=== PATIENT | male | born 1990 | race African-American/Black ===

== ENCOUNTER 2020-06-27 20:57 | Emergency (ER) | payer OTHER ==
[~2020-06-27] VITALS: Ht 172.7 cm; Wt 65.8 kg
--- NOTE | 2020-06-27 21:01 | NUR ---
Patient presents with c/o Rash to B hands (itchy,dry, flaky) x 1.5 months. States he has had this type of rash before and believes it is related to sensitivity to an unknown object. No cardiopulmonary distress noted. No other s/s of allergic reaction. No airway concerns. No fever/chills/N/V/D.
[2020-06-27] MEDS ORDERED: predniSONE 20 MG TABLET ONE (21:12)
--- NOTE | 2020-06-27 21:13 | NUR ---
Patient discharged to home in stable condition. Written and verbal after care instructions given. Patient verbalizes understanding of instructions. Stressed follow up or return to ER for worsening s/s. Ambulated frm ER with stable gait. All belongings with patient. VSS
[2020-06-27 21:14] VITALS: BP 120/75
[2020-06-27] MEDS ORDERED: predniSONE 20 MG TABLET PO ONE (21:15)
== END 2020-06-27 21:14 | disposition home or self-care (01) ==
LOC: ER 21:00
DX: R21 Rash and other nonspecific skin eruption (principal); F17.200 Nicotine dependence, unspecified, uncomplicated
CPT/HCPCS: 99283; J7512; A4663

== ENCOUNTER 2020-11-08 10:55 | Emergency (ER) | payer OTHER ==
[~2020-11-08] VITALS: Ht 177.8 cm; Wt 68.0 kg
--- NOTE | 2020-11-08 11:03 | NUR ---
Pt has cracking/peeling skin on right lower leg and bilateral wrists, also edema and redness in right lower leg and foot, denies pain. Pt denies CP, SOB, dizziness, n/v, no other complaints, no distress noted.
[2020-11-08] MEDS ORDERED: TRIA60LO7 TOP (11:36)
[2020-11-08] MEDS ORDERED: PRED20TA PO (11:36)
[2020-11-08] MEDS ORDERED: SULF1TAB48 PO (11:36)
[2020-11-08] MEDS ORDERED: CEPH500C2 PO (11:36)
--- NOTE | 2020-11-08 12:00 | NUR ---
Gave pt RX and d/c instructions, pt verbalized understanding.
== END 2020-11-08 12:03 | disposition home or self-care (01) ==
LOC: ER 10:55
DX: L03.115 Cellulitis of right lower limb (principal); L30.9 Dermatitis, unspecified; Z79.899 Other long term (current) drug therapy
CPT/HCPCS: A4663

== ENCOUNTER 2020-12-01 20:06 | Emergency (ER) | payer OTHER ==
[~2020-12-01] VITALS: Ht 177.8 cm; Wt 68.0 kg
[~2020-12-01 20:06] MED LIST: CEPH500C2 PO; PRED20TA PO; SULF1TAB48 PO; TRIA60LO7 TOP
[2020-12-01] MEDS ORDERED: CLINDAMYCIN HCL 150 MG CAPSULE PO ONE (20:45)
[2020-12-01] MEDS ORDERED: predniSONE 50 MG TABLET PO ONE (20:45)
[2020-12-01] MEDS ORDERED: predniSONE 50 MG TABLET ONE (20:54)
[2020-12-01] MEDS ORDERED: CLINDAMYCIN HCL 300 MG CAPSULE ONE (20:54)
[2020-12-01] MEDS ORDERED: CLIN300C12 PO (21:33)
[2020-12-01] MEDS ORDERED: PRED20TA PO (21:33)
== END 2020-12-01 22:04 | disposition home or self-care (01) ==
LOC: ER 20:12
DX: L03.115 Cellulitis of right lower limb (principal); I83.11 Varicose veins of right lower extremity with inflammation; F17.210 Nicotine dependence, cigarettes, uncomplicated
CPT/HCPCS: 93971; 99284; 99406; J7512; A4663

== ENCOUNTER 2021-08-11 06:32 | Emergency (ER) | payer OTHER ==
[~2021-08-11] VITALS: Ht 177.8 cm; Wt 68.0 kg
[~2021-08-11 06:32] MED LIST changes: +CLIN300C12 PO
--- NOTE | 2021-08-11 06:55 | NUR ---
PT AMBULATED TO ER C/O UNABLE TO MOVE RT WRIST X3 DAYS.
--- NOTE | 2021-08-11 07:02 | NUR ---
DR. HAYNES AT BEDSIDE, MSE IN PROGRESS.
--- NOTE | 2021-08-11 07:33 | NUR ---
XRAY RESULTS AND DISCHARGE INSTRUCTIONS RENDERED BY DR DEGROOT - DISCHARGED IN STABLE CONDITION.
[2021-08-11 07:37] VITALS: BP 110/80
== END 2021-08-11 07:38 | disposition home or self-care (01) ==
LOC: ER 06:57
DX: G56.31 Lesion of radial nerve, right upper limb (principal); F17.210 Nicotine dependence, cigarettes, uncomplicated
CPT/HCPCS: 73110; A4663

== ENCOUNTER 2024-02-21 19:26 | Emergency (ER) | payer OTHER ==
[~2024-02-21] VITALS: Ht 177.8 cm; Wt 70.3 kg
[2024-02-21] MEDS ORDERED: ACETAMINOPHEN 325 MG TABLET ONE (20:48)
[2024-02-21] MEDS ORDERED: IBUPROFEN 400 MG TABLET ONE (20:48)
[2024-02-21] MEDS: ACETAMINOPHEN ES 500 MG TABLET PO ONE (20:54)
[2024-02-21] MEDS: IBUPROFEN 400 MG TABLET PO ONE (20:54)
[2024-02-21 21:44] VITALS: BP 134/84; O2SAT 99
== END 2024-02-21 21:44 | disposition home or self-care (01) ==
LOC: ER 19:27
DX: S13.8XXA Sprain of joints and ligaments of other parts of neck, initial encounter (principal); F17.200 Nicotine dependence, unspecified, uncomplicated; Z79.899 Other long term (current) drug therapy; V89.2XXA Person injured in unspecified motor-vehicle accident, traffic, initial encounter; Y93.89 Activity, other specified; Y92.89 Other specified places as the place of occurrence of the external cause; Y99.0 Civilian activity done for income or pay
CPT/HCPCS: A4606; A4663